=== PATIENT | female | born 1995 | race Two or more races ===

== ENCOUNTER 2021-08-18 13:00 | Inpatient (IN) | payer OTHER ==
[2021-08-18] MEDS ORDERED: DEXTROSE 5%-LACTATED RINGERS 1,000 ML IV SCH (14:30)
[2021-08-18 14:39] VITALS: BMI 30.9
[2021-08-18 14:46] LABS: BASO % 0.3 % (0-2.0); EOS % 0.4 % (0-4.5); HEMATOCRIT 36.2 % (32.4-45.2); HEMOGLOBIN 12.7 GM/dL (10.7-15.3); LYMPH % 23.9 % (8-40); MCH 31.5 pg (25.7-33.7); MCHC 35.2 g/dl (32.0-36.0); MEAN CELL VOLUME 89.5 fl (80-96); MEAN PLT VOLUME 10.3 fl (7.5-11.1); NEUT % 68.4 % (42.8-82.8); PLATELET COUNT 135 10^3/uL (134-434); RBC 4.04 M/mm3 (3.60-5.2); RDW 14.6 % (11.6-15.6); WHITE BLOOD COUNT 8.3 K/mm3 (4.0-10.0)
[2021-08-18 14:50] LABS: INR 0.95 (0.83-1.09); PROTHROMBIN TIME (PATIENT) 11.7 SEC (9.7-13.0)
[2021-08-18 14:53] LABS: ACTIVATED PTT 33.2 SECONDS (25.2-36.5)
[2021-08-18 15:07] LABS: CALCIUM 9.5 mg/dL (8.5-10.1)
[2021-08-18 15:08] LABS: BLOOD UREA NITROGEN 6.2 mg/dL (7-18)
[2021-08-18 15:11] LABS: CREATININE 0.4 mg/dL (0.55-1.3)
[2021-08-18 17:12] LABS: HIV INTERPRETATION NEGATIVE (NEGATIVE)
[2021-08-18] MEDS ORDERED: ELECTROLYTE-148 SOLN 1,000 ML IV SCH ×2 (19:00→19:30)
[2021-08-18] MEDS ORDERED: morphine SULFATE/Preservative Free 0.5 MG/ML (1cc Syringe) ONE (19:14)
[2021-08-18] MEDS ORDERED: ePHEDrine SULFATE 50 MG/1 ML AMPULE ONE (19:17)
[2021-08-18] MEDS ORDERED: SODIUM CHLORIDE 0.9% P/F 10 ML VIAL IJ ONE ×2 (19:19→19:21)
[2021-08-18] MEDS ORDERED: ceFAZolin SODIUM 1 GM VIAL ONE (19:19)
[2021-08-18] MEDS ORDERED: OXYTOCIN 10 UNIT/ML 10ML MDV ONE (19:19)
[2021-08-18] MEDS ORDERED: ONDANSETRON 4 MG/2 ML VIAL IVPUSH PRN (19:29)
[2021-08-18] MEDS ORDERED: IBUPROFEN 600 MG TABLET (FP) PO PRN (19:29)
[2021-08-18] MEDS ORDERED: morphine SULFATE/PF 1 MG/2 ML (2cc Syringe - QUVA) EP ONE (19:29)
[2021-08-18] MEDS ORDERED: ELECTROLYTE-148 SOLN 500 ML IV ONE (19:30)
[2021-08-18] MEDS ORDERED: CITRIC ACID/SODIUM CITRATE 30 ML UNIT-DOSE CUP PO ONE (19:30)
[2021-08-18] MEDS ORDERED: KETOROLAC TROMETHAMINE 30 MG/1 ML VIAL ONE (20:10)
[2021-08-18] MEDS ORDERED: ONDANSETRON 4 MG/2 ML VIAL ONE (20:10)
[2021-08-18] MEDS ORDERED: oxyCODONE HCL 5 MG TABLET PO PRN ×2 (20:59)
[2021-08-18] MEDS ORDERED: METHYLERGONOVINE MALEATE 0.2 MG/1 ML AMP IM PRN (20:59)
[2021-08-18] MEDS ORDERED: SENNOSIDES/DOCUSATE COMBO (SENNA PLUS) TABLET (UD) PO PRN (20:59)
[2021-08-18] MEDS ORDERED: IBUPROFEN 800 MG/8 ML IJ IVPB PRN (20:59)
[2021-08-18] MEDS ORDERED: OXYTOCIN 20 UNITS in 0.9% NS 20 UNIT/1,000 ML INFUS.BAG IV ONE (21:35)
[2021-08-18] MEDS: OXYTOCIN 20 UNITS in 0.9% NS 20 UNIT/1,000 ML INFUS.BAG IV SCH (22:00)
[2021-08-19] MEDS: OXYTOCIN 20 UNITS in 0.9% NS 20 UNIT/1,000 ML INFUS.BAG IV SCH (05:30)
[2021-08-19 07:44] LABS: BASO % 0.2 % (0-2.0); HEMATOCRIT 34.4 % (32.4-45.2); LYMPH % 14.7 % (8-40); MCHC 34.9 g/dl (32.0-36.0); MEAN CELL VOLUME 88.7 fl (80-96); MEAN PLT VOLUME 9.9 fl (7.5-11.1); NEUT % 78.1 % (42.8-82.8); PLATELET COUNT 118 10^3/uL (134-434); RBC 3.89 M/mm3 (3.60-5.2); RDW 14.3 % (11.6-15.6)
[2021-08-19] MEDS: SIMETHICONE 80 MG TAB.CHEW (FP) PO PRN (10:12)
[2021-08-19] MEDS: IBUPROFEN 600 MG TABLET (FP) PO PRN ×2 (10:12→17:39)
[2021-08-19] MEDS: PRENATAL VITAMINS W/ FOLIC ACID TABLET (FP) PO SCH (10:12)
[2021-08-19] MEDS ORDERED: BISACODYL 10 MG SUPP.RECT RC PRN (20:59)
[2021-08-20] MEDS: IBUPROFEN 600 MG TABLET (FP) PO PRN ×2 (04:37→14:10)
[2021-08-20] MEDS: SIMETHICONE 80 MG TAB.CHEW (FP) PO PRN ×2 (04:38→14:10)
[2021-08-20] MEDS: PRENATAL VITAMINS W/ FOLIC ACID TABLET (FP) PO SCH (09:26)
[2021-08-20] MEDS: ACETAMINOPHEN 325 MG TABLET (FP) PO PRN (18:35)
[2021-08-20 21:50] VITALS: TEMP 98.5
[2021-08-21 08:45] VITALS: BP 114/77; PULSE 76
[2021-08-21] MEDS: ACETAMINOPHEN 325 MG TABLET (FP) PO PRN (09:15)
[2021-08-21] MEDS: PRENATAL VITAMINS W/ FOLIC ACID TABLET (FP) PO SCH (09:16)
[2021-08-21] MEDS: SIMETHICONE 80 MG TAB.CHEW (FP) PO PRN (09:16)
== END 2021-08-21 12:15 | disposition home or self-care (01) | DRG 540 ==
LOC: JLDR 13:00 → J3W 21:40
PROVIDERS: ADMIT Obstetrics & Gynecology; ATTEND Obstetrics & Gynecology
PROC: 10D00Z1 Extraction of Products of Conception, Low, Open Approach (ICD-10-PCS; principal; 2021-08-18)
DX: O48.0 Post-term pregnancy (principal); O41.03X0 Oligohydramnios, third trimester, not applicable or unspecified; O34.33 Maternal care for cervical incompetence, third trimester; Z3A.41 41 weeks gestation of pregnancy; Z37.0 Single live birth
CPT/HCPCS: 36415; 80048; 82962; 85025; 85610; 85730; 86780; 86850; 86900; 86901; 87389; 88307-TC; C9803; U0003; U0005